=== PATIENT | female | born 1940 | race Caucasian/White ===

== ENCOUNTER 2022-10-22 09:02 | Inpatient (IN) | payer OTHER ==
[~2022-10-22] VITALS: Ht 154.9 cm; Wt 44.9 kg
[~2022-10-22 09:02] MED LIST: ceFAZolin SODIUM 2 GM in NS 100 ML IV ONE; cefOXitin SODIUM 2 GM in D5W 100 ML IV ONE
[2022-10-22] MEDS ORDERED: BUPIVACAINE LIPOSOME/PF 266 MG/20 ML VIAL INFIL ONE (11:27)
[2022-10-22] MEDS ORDERED: KETOROLAC TROMETHAMINE 30 MG VIAL ONE (12:00)
[2022-10-22] MEDS ORDERED: SUGAMMADEX SODIUM 200 MG/2 ML VIAL IV ONE (12:00)
[2022-10-22] MEDS ORDERED: NS 100 ML BAG ONE (12:00)
[2022-10-22] MEDS ORDERED: NS IRRIG SOLN 1000 ML IR ONE ×2 (12:00→12:23)
[2022-10-22] MEDS ORDERED: fentaNYL CITRATE/PF 100 MCG/2 ML AMP ONE ×2 (12:00→12:23)
[2022-10-22] MEDS ORDERED: DEXAMETHASONE SOD PHOSPHATE 4 MG/ML VIAL ONE (12:00)
[2022-10-22] MEDS ORDERED: WATER FOR IRRIGATION,STERILE 1,000 ML IRRIG.SOLN IR ONE (12:00)
[2022-10-22] MEDS ORDERED: ROCURONIUM BROMIDE 10 MG/ML (ZEMURON) ONE (12:00)
[2022-10-22] MEDS ORDERED: LIDOCAINE 2%, 20 ML MDV ONE ×2 (12:00→12:23)
[2022-10-22] MEDS ORDERED: LR 1,000 ML IV.SOLN IV ONE ×2 (12:00→12:23)
[2022-10-22] MEDS ORDERED: MIDAZOLAM HCL/PF 2 MG/2 ML SYRINGE ONE ×2 (12:00→12:23)
[2022-10-22] MEDS ORDERED: ONDANSETRON HCL 4 MG/2 ML VIAL ONE ×2 (12:00→12:23)
[2022-10-22] MEDS ORDERED: BUPIVACAINE /PF 0.25% 30 ML VIAL INJ ONE (12:00)
[2022-10-22] MEDS ORDERED: DESFLURANE 15 MIN GAS INH ONE (12:00)
[2022-10-22] MEDS ORDERED: cefOXitin SODIUM 2 GM/VIAL (MEFOXIN) ONE (12:00)
[2022-10-22] MEDS ORDERED: PROPOFOL 200MG/ 20ML VIAL (DIPRIVAN) IV ONE ×2 (12:00→12:23)
[2022-10-22] MEDS ORDERED: METOCLOPRAMIDE HCL 10 MG/10 ML UDC ONE (12:23)
[2022-10-22] MEDS ORDERED: SEVOFLURANE 15 MIN GAS INH ONE (12:23)
[2022-10-22] MEDS ORDERED: PHENYLEPHRINE HCL 10 MG/ML VIAL (NEOSYNEPHRINE) ONE (12:23)
[2022-10-22] MEDS ORDERED: LR 1,000 ML IV SCH (13:15)
[2022-10-22] MEDS ORDERED: METOCLOPRAMIDE HCL 10 MG/2 ML VIAL IVP PRN (13:15)
[2022-10-22] MEDS ORDERED: HYDROmorphone 1 MG/ML INJ. CARTRIDGE IVP PRN ×3 (13:15→15:15)
[2022-10-22] MEDS ORDERED: MEPERIDINE HCL/PF 25 MG/ML DISP.SYRIN IVP PRN (13:15)
[2022-10-22] MEDS ORDERED: ACETAMINOPHEN I.V. 1000 MG 100 ML IV ONE (14:18)
[2022-10-22] MEDS ORDERED: LEVO25TA7 PO (14:20)
[2022-10-22] MEDS ORDERED: SIMV-343 PO (14:20)
[2022-10-22] MEDS ORDERED: ONDANSETRON HCL 4 MG/2 ML VIAL IVP PRN (15:15)
[2022-10-22] MEDS ORDERED: HYDROcodone/ACETAMIN 5-325 MG TAB (NORCO/ VICODIN) PO PRN ×2 (15:15)
[2022-10-22] MEDS: D5/0.45 NS 1,000 ML IV SCH ×2 (15:15→22:01)
[2022-10-22] MEDS ORDERED: ACETAMINOPHEN 325 MG TABLET PO PRN (15:15)
[2022-10-22 16:18] LABS: HEMATOCRIT 38.7 % (36-48); HEMOGLOBIN 12.5 g/dL (12.0-16.0)
[2022-10-22 16:36] LABS: ANION GAP 9 (5-15); CALCIUM 8.2 mg/dL (8.4-11.0); CHLORIDE 103 mmol/L (98-107); GLUCOSE 171 mg/dL (74-106); UREA NITROGEN, BLOOD 8 mg/dL (8-21)
[2022-10-22] MEDS ORDERED: HYDROmorphone 1 MG/ML INJ. CARTRIDGE ONE (17:40)
[2022-10-22 18:09] VITALS: BP_SYST 135; PULSE 72; RESP 16; TEMP 97.7; O2SAT 98
[2022-10-22 19:45] VITALS: O2SAT 99
[2022-10-22 20:00] VITALS: BP_SYST 132; PULSE 74; RESP 18; TEMP 97.1; O2SAT 99
[2022-10-22] MEDS: FAMOTIDINE PF 20 MG/2 ML VIAL IVP SCH (21:57)
[2022-10-22] MEDS: cefOXitin SODIUM 2 GM in D5W 100 ML IV SCH (21:57)
--- NOTE | 2022-10-22 23:17 | NUR ---
OPENING NOTES: Patient was received during 1900 change of shift. Patient was in bed sleeping no noted s/s of distress, call light within reach. Chest rise even and unlabored on 2Lvia NC on tele monitoring with SR rhythm. Patient is AA&ox3 able to make needs known. PIV 20G noted to the RFA 20G infusing LR via tubing hanging with counted drops, will change to IV pump. Patient is POST-OP following a LAP anterior colon resection completed earlier today and returned from PACU at 1655 and was assessed by AM shift nurses following POST-OP protocol. ABD incision noted dressed C/D/I with ABD binder. V/S are being assessed [id number] and are noted WNL no elevated temp. Safety measures are in place at this time as per protocol. Care was resumed at this time. 2229: Patient has been assessed as indicated and has received scheduled evening medication. Patient has been started on D51/2NS via IV pump as ordered. Patient denied any pain or discomfort at the time and stated that she really only felt pain when she had to move or turn. Education was provided on POST-OP care, s/s of infection, and need of incentive spirometer. Patient verbalized understanding but stated that we would have to keep on reminding her to use incentive spirometer. Evening care was provided by aid and patient is in bed resting, will continue to monitor.
[2022-10-23] VITALS (7 sets, daily range): BP systolic 129–148; PULSE 65–109; RESP 17–20; TEMP 98–98.7; O2SAT 93–98
--- NOTE | 2022-10-23 06:19 | NUR ---
CLOSING NOTES: Patient is in bed resting no s/s of distress is noted at this time. Chest rise is even and unlabored on 2L via NC and remains on tele monitoring with NSR. Patient is AA&ox3 and was noted throughout the night with some confusion but was easily to reorientated. Patient was initially a little lethargic during the beginning of the shift, but it decreased throughout the night. 1 reported episode of N/V but relieved with the administration of PRN zofran. Patient is stable at this time, all current shift needs have been met, & safety measures are in place as per protocol. Will differ care to AM shift nurse for continuity of care.
--- NOTE | 2022-10-23 08:00 | NUR ---
Start of shift Pt resting in bed. Pt has tele unit attached and intact. IV in RFA intact and patent infusing IVF's well. Pt's bed in low position and bed alarm on. Morillo catheter intact and draining. Pt's abdominal incision covered with surgical dressing - CDI at this time. Pt has abdominal binder on. Denies any nausea/vomiting at this time. No needs noted. Call light within reach.
--- NOTE | 2022-10-23 08:10 | NUR ---
CONSULTATION PAGED/CALLED Reason for Consultation: HOSPITALIST Person Who was Notified: ELLEN [phone] Consulting Physician: DR GUTIERREZ Water Engineer Specialty: HOSPITALIST Ordering Physician: DR DOTY
--- NOTE | 2022-10-23 08:13 | NUR ---
Dr Taveras Called Dr Taveras's answering service, spoke to Lennie at this time. To inform Dr Taveras request by Dr Isiah Mckeon to follow pt for medical management (HCP) while in hospital.
[2022-10-23 08:33] LABS: BASOPHILS % (AUTO) 0.3 % (0.0-2.0); HEMOGLOBIN 12.3 g/dL (12.0-16.0); LYMPHOCYTES % (AUTO) 11.3 % (20.5-51.5); MEAN CORPUSCULAR HEMOGLOBIN 30 pg (27-31); MEAN CORPUSCULAR HGB CONC 33 % (32-36); MEAN CORPUSCULAR VOLUME 91 fL (79.0-98.0); MONOCYTES # (AUTO) 0.9 K/uL (0.0-1.0); MONOCYTES % (AUTO) 10.8 % (1.7-9.3); NEUTROPHILS # (AUTO) 6.5 K/uL (1.8-7.7); NEUTROPHILS % (AUTO) 77.6 % (40.0-70.0); PLATELET COUNT (AUTO) 227 K/uL (130-430); RED BLOOD CELL COUNT(AUTO) 4.09 MIL/uL (4.2-6.2); RED CELL DISTRIBUTION WIDTH 15.5 % (9.0-15.0); WHITE BLOOD COUNT (AUTO) 8.4 K/uL (4.8-10.8)
[2022-10-23] MEDS: ENOXAPARIN SODIUM 30 MG/0.3 ML SYRINGE SUBCUT SCH (08:50)
[2022-10-23] MEDS: cefOXitin SODIUM 2 GM in D5W 100 ML IV SCH (08:50)
[2022-10-23] MEDS: FAMOTIDINE PF 20 MG/2 ML VIAL IVP SCH ×2 (08:50→20:48)
[2022-10-23 08:55] LABS: ALANINE AMINOTRANSFERASE 9 U/L (12-78); ALBUMIN 2.4 g/dL (3.4-4.8); ANION GAP 3 (5-15); ASPARTATE AMINOTRANSFERASE 18 U/L (10-37); CALCIUM 8.5 mg/dL (8.4-11.0); CHLORIDE 103 mmol/L (98-107); CREATININE 0.73 mg/dL (0.55-1.30); GLUCOSE 121 mg/dL (74-106); TOTAL BILIRUBIN 0.3 mg/dL (0.0-1.0); UREA NITROGEN, BLOOD 10 mg/dL (8-21)
[2022-10-23] MEDS ORDERED: ONDANSETRON HCL 4 MG/2 ML VIAL ONE (09:24)
[2022-10-23] MEDS ORDERED: SEVOFLURANE 15 MIN GAS INH ONE (09:24)
[2022-10-23] MEDS ORDERED: NS IRRIG SOLN 1000 ML IR ONE (09:24)
[2022-10-23] MEDS ORDERED: ROCURONIUM BROMIDE 10 MG/ML (ZEMURON) ONE (09:24)
[2022-10-23] MEDS ORDERED: MIDAZOLAM HCL/PF 2 MG/2 ML SYRINGE ONE (09:24)
[2022-10-23] MEDS ORDERED: LR 1,000 ML IV.SOLN IV ONE (09:24)
[2022-10-23] MEDS ORDERED: SODIUM CHLORIDE 3% 500 ML BAG IV ONE (09:24)
[2022-10-23] MEDS ORDERED: PROPOFOL 200MG/ 20ML VIAL (DIPRIVAN) IV ONE (09:24)
[2022-10-23] MEDS ORDERED: METOCLOPRAMIDE HCL 10 MG/10 ML UDC ONE (09:24)
[2022-10-23] MEDS ORDERED: SUCCINYLCHOLINE CHLORIDE 20 MG/ML(QUELICIN) ONE (09:24)
[2022-10-23] MEDS ORDERED: GLYCOPYRROLATE 0.2 MG/ML VIAL ONE (09:24)
[2022-10-23] MEDS ORDERED: BUPIVACAINE /PF 0.25% 10 ML VIAL INJ ONE (09:24)
[2022-10-23] MEDS ORDERED: fentaNYL CITRATE/PF 100 MCG/2 ML AMP ONE (09:24)
[2022-10-23] MEDS ORDERED: LEVOTHYROXINE SODIUM 0.05 MG TABLET PO ONE (09:30)
--- NOTE | 2022-10-23 11:30 | NUR ---
Note Pt has been encouraged to use IS q1' 10X while awake. Pt has HOB raised to 90' and informed that she will have Clear liquids diet for lunch. Pt has 2 family members at this time at bedside. Pt encouraged to get OOB and ambulate in room and to the door of room, as Morillo catheter will be dc'd soon. Call light within reach. No N/V noted all shift. Pt has SCD's on bilaterally all shift.
[2022-10-23] MEDS: METOCLOPRAMIDE HCL 10 MG/2 ML VIAL IVP SCH ×2 (13:20→22:42)
[2022-10-23] MEDS ORDERED: LEVOTHYROXINE SODIUM 0.025 MG TABLET PO SCH (14:15)
[2022-10-23] MEDS ORDERED: SIMVASTATIN 20 MG TABLET PO ONE (14:15)
[2022-10-23] MEDS: D5/0.45 NS 1,000 ML IV SCH ×2 (15:14→20:51)
--- NOTE | 2022-10-23 16:25 | NUR ---
Note DC'D tele unit and returned to electromyographic technician.
--- NOTE | 2022-10-23 17:45 | NUR ---
Note Pt was transferred from room 117A to 121A via bed with all her belongings.
--- NOTE | 2022-10-23 18:35 | NUR ---
END OF SHIFT Pt sitting up in bed eating her dinner. Pt next to nurses station now for close observation for needs and care. Pt's bed in low position and bed alarm on. Side rails raised. Pt was checked on q1' and PRN all shift for needs and care. Pt was maintained with safety precautions all shift. IV in RFA intact and patent infusing IVF's well. Abdominal incision dressing CDI and abdominal binder has been on all shift. Pt worked with PT on ambulation in room and hallway with FWW. Pt has BSC for use all shift. Call light within reach.
--- NOTE | 2022-10-23 19:30 | NUR ---
INITIAL NOTES; endorsed by day shift S/P Laparoscopic anterior colon resection. pt. awake, alert but confused and disoriented, on fall risk precaution, bed alarm on. pt. close to nurses station. call light within reach.
[2022-10-23] MEDS ORDERED: SIMVASTATIN 20 MG TABLET PO SCH (21:00)
--- NOTE | 2022-10-23 21:00 | NUR ---
NOTES: pt. always attempts to get out of bed. pt. assisted to use BSC. reorient at all times.
--- NOTE | 2022-10-23 23:00 | NUR ---
NOTES: pt. family at bedside.
--- NOTE | 2022-10-23 23:30 | NUR ---
NOTES: pt. medicated with Eden po for c/o post op abdominal pain. needs attended.
[2022-10-24 00:17] VITALS: BP_SYST 139; PULSE 59; RESP 18; TEMP 97.6; O2SAT 95
--- NOTE | 2022-10-24 01:00 | NUR ---
NOTES: pt. sleeping at this time. bed alarm on.
--- NOTE | 2022-10-24 04:05 | NUR ---
NOTES: pt. IV leaking, restarted on left hand with gauge # 22 and resume IVF.
--- NOTE | 2022-10-24 06:00 | NUR ---
NOTES: IV site got infiltrated, removed, will try later. no distress. pt. keeps getting out of bed to BSC to void. pt. confused and unable to use call light.
[2022-10-24] MEDS: METOCLOPRAMIDE HCL 10 MG/2 ML VIAL IVP SCH (06:19)
[2022-10-24] MEDS ORDERED: LEVOTHYROXINE SODIUM 0.05 MG TABLET PO SCH (07:00)
[2022-10-24 08:00] VITALS: BP_SYST 142; PULSE 79; RESP 18; TEMP 96.8; O2SAT 98
[2022-10-24] MEDS: D5/0.45 NS 1,000 ML IV SCH (08:39)
[2022-10-24] MEDS: FAMOTIDINE PF 20 MG/2 ML VIAL IVP SCH (09:00)
[2022-10-24] MEDS ORDERED: SIMVASTATIN 20 MG TABLET PO SCH (09:00)
[2022-10-24] MEDS: ENOXAPARIN SODIUM 30 MG/0.3 ML SYRINGE SUBCUT SCH (09:00)
[2022-10-24 14:24] VITALS: BP_SYST 151; PULSE 86; RESP 18; TEMP 97.5; O2SAT 99
--- NOTE | 2022-10-24 14:38 | NUR ---
patient DC with wheelchair assisted by the family members. DC paper printed and signed by the grandson. IV taken out. all her belongings sent with the patient. patient in stable condition.
--- NOTE | 2022-10-25 14:46 | NUR ---
PHYSICAL THERAPY CO-SIGN The Physical Therapy Progress Notes documented by Semi Driver have been reviewed. Reviewed/Co-Signed by: Catracho Beltran Documentation Done by:MARISELA MCDERMOTT Addendum: 10/25/22 at 1446 by Catracho Beltran PT Amended: Links added.
== END 2022-10-24 13:00 | disposition home or self-care (01) | DRG 331 ==
LOC: SDS 09:02 → SMU 09:04 → SDS 15:15 → STU 15:18 → SMU 17:02 → UNDOADMIN 10-23 15:18 → SMU 10-23 15:18 → SDS 10-23 15:18 → SMU 10-23 15:18 → STU 10-23 17:40
PROVIDERS: ADMIT Colon & Rectal Surgery; ATTEND Colon & Rectal Surgery
PROC: 0DJD8ZZ Inspection of Lower Intestinal Tract, Via Natural or Artificial Opening Endoscopic (ICD-10-PCS; 2022-10-22)
PROC: 0DQP4ZZ Repair Rectum, Percutaneous Endoscopic Approach (ICD-10-PCS; principal; 2022-10-22 12:09)
DX: K62.3 Rectal prolapse (principal); E03.9 Hypothyroidism, unspecified; E78.5 Hyperlipidemia, unspecified
CPT/HCPCS: 36415; 80048; 80053; 85018; 85025; 87081; 88307; 97116-GP; 97530-GP; C1727; C9290; G0378; J0131; J0330; J0690; J0694; J1100; J1170; J1650; J1885; J2001; J2370; J2405; J2704; J2765; J3010; J3465; J3490; J7060; J7120; J8597